=== PATIENT | male | born 1980 | race Caucasian/White ===

== ENCOUNTER 2017-09-29 18:18 | Emergency (ER) | payer BC ==
[2017-09-29] MEDS: ONDANSETRON 4 MG INJ IV (19:24)
[2017-09-29] MEDS: SOD CHLORIDE 0.9% 1,000 ML IV (19:24)
[2017-09-29] MEDS: morphine 4 MG/ML VIAL IV (19:24)
== END 2017-09-29 21:54 | disposition home or self-care (01) ==
LOC: FTE 18:18
DX: T62.91XA Toxic effect of unspecified noxious substance eaten as food, accidental (unintentional), initial encounter (principal); I10 Essential (primary) hypertension
CPT/HCPCS: 96374; 96375; 99284-25

== ENCOUNTER 2017-11-02 03:31 | Emergency (ER) | payer BC | END 2017-11-02 05:05 | disposition home or self-care (01) | LOC: FTE 03:31 | DX: H10.022 Other mucopurulent conjunctivitis, left eye (principal); J20.9 Acute bronchitis, unspecified; I10 Essential (primary) hypertension | CPT/HCPCS: 99284 ==

== ENCOUNTER 2018-02-09 19:57 | Emergency (ER) | payer BC ==
[2018-02-09 21:18] LABS: ADD MAN DIFF? NO
[2018-02-09 21:23] LABS: BASOPHILS % 0.3 % (0.0-2.0); EOSINOPHILS # 0.2 10^3/ul (0.0-0.5); EOSINOPHILS % 3.2 % (0.0-7.0); HEMATOCRIT 43.8 % (42.0-52.0); HEMOGLOBIN 15.1 g/dl (14.0-18.0); LYMPHOCYTES # 1.7 10^3/ul (0.8-2.9); LYMPHOCYTES % 26.5 % (15.0-51.0); MEAN CORPUSCULAR HEMOGLOBIN 28.7 pg (29.0-33.0); MEAN CORPUSCULAR HGB CONC 34.5 g/dl (32.0-37.0); MEAN CORPUSCULAR VOLUME 83.1 fl (82.0-101.0); MEAN PLATELET VOLUME 9.6 fl (7.4-10.4); MONOCYTE # 0.4 10^3/ul (0.3-0.9); MONOCYTES % 6.4 % (0.0-11.0); NEUTROPHIL # 4.1 10^3/ul (1.6-7.5); NEUTROPHILS % 63.4 % (39.0-77.0); PLATELET COUNT 316 10^3/UL (140-415); RED BLOOD COUNT 5.27 10^6/ul (4.70-6.10); RED CELL DISTRIBUTION WIDTH 13.2 % (11.5-14.5)
[2018-02-09 21:23] LABS: WHITE BLOOD COUNT 6.5 10^3/ul (4.8-10.8)
[2018-02-09 21:26] LABS: ADD UMIC NO; UR ASCORBIC ACID 40 mg/dL (NEGATIVE); UR BILIRUBIN (Dip) NEGATIVE (NEGATIVE); UR BLOOD (Dip) NEGATIVE (NEGATIVE); UR CLARITY CLEAR (CLEAR); UR COLOR YELLOW (YELLOW); UR GLUCOSE (Dip) NEGATIVE (NEGATIVE); UR KETONES (Dip) NEGATIVE (NEGATIVE); UR LEUKOCYTE ESTERASE (Dip) NEGATIVE Leu/ul (NEGATIVE); UR NITRITE (Dip) NEGATIVE (NEGATIVE); UR SPECIFIC GRAVITY (Dip) 1.023 (1.003-1.030); UR TOTAL PROTEIN (Dip) NEGATIVE (NEGATIVE); UR UROBILINOGEN (Dip) NEGATIVE (NEGATIVE)
[2018-02-09 21:44] LABS: ALANINE AMINOTRANSFERASE 111 IU/L (13-69); ALBUMIN 4.4 g/dl (3.3-4.9); ALBUMIN/GLOBULIN RATIO 1.33; ALKALINE PHOSPHATASE 74 IU/L (42-121); ANION GAP 13 (8-16); ASPARTATE AMINO TRANSFERASE 47 IU/L (15-46); BILIRUBIN,INDIRECT 0.5 mg/dl (0-1.1); BILIRUBIN,TOTAL 0.5 mg/dl (0.2-1.3); BLOOD UREA NITROGEN 16 mg/dl (7-20); CALCIUM 9.1 mg/dl (8.4-10.2); CARBON DIOXIDE 28 mmol/L (21-31); CHLORIDE 103 mmol/L (97-110); CREATININE 0.89 mg/dl (0.61-1.24); GLUCOSE 90 mg/dl (70-220); POTASSIUM 4.1 mmol/L (3.5-5.1); SODIUM 140 mmol/L (135-144); TOTAL PROTEIN 7.7 g/dl (6.1-8.1)
== END 2018-02-09 22:38 | disposition home or self-care (01) ==
LOC: FTE 19:57
DX: R53.1 Weakness (principal); I10 Essential (primary) hypertension
CPT/HCPCS: 36415; 80053; 81003; 85025; 99283

== ENCOUNTER 2018-08-29 02:24 | Emergency (ER) | payer BC | END 2018-08-29 05:41 | disposition home or self-care (01) | LOC: FTE 02:24 | DX: S06.0X1A Concussion with loss of consciousness of 30 minutes or less, initial encounter (principal); R42 Dizziness and giddiness; I10 Essential (primary) hypertension; W22.8XXA Striking against or struck by other objects, initial encounter; Y92.9 Unspecified place or not applicable | CPT/HCPCS: 70450; 99284 ==

== ENCOUNTER 2018-11-03 07:34 | Emergency (ER) | payer BC ==
[2018-11-03] MEDS: predniSONE 20 MG TAB PO (08:00)
[2018-11-03] MEDS: ALBUTEROL 0.083% (NEB) 2.5 MG/3 ML AMP NEB (08:19)
[2018-11-03] MEDS: IPRATROPIUM (NEB) 0.5 MG/2.5 ML AMP NEB (08:20)
== END 2018-11-03 09:03 | disposition home or self-care (01) ==
LOC: FTE 07:34
DX: J20.9 Acute bronchitis, unspecified (principal); I10 Essential (primary) hypertension; J45.901 Unspecified asthma with (acute) exacerbation
CPT/HCPCS: 71045; 94664; 99284-25

== ENCOUNTER 2018-11-07 14:57 | Emergency (ER) | payer BC | END 2018-11-07 15:16 | disposition home or self-care (01) | LOC: FTE 14:57 → E/R 15:16 | DX: L03.312 Cellulitis of back [any part except buttock and flank] (principal); I10 Essential (primary) hypertension | CPT/HCPCS: 99283 ==

== ENCOUNTER 2018-11-12 06:14 | Emergency (ER) | payer BC ==
[2018-11-12] MEDS: SOD CHLORIDE 0.9% 1,000 ML IV (06:57)
[2018-11-12] MEDS: ONDANSETRON 4 MG INJ IV (06:58)
[2018-11-12] MEDS: KETOROLAC 30 MG INJ IV (06:58)
[2018-11-12] MEDS: FAMOTIDINE 20 MG INJ IV (07:18)
== END 2018-11-12 08:30 | disposition home or self-care (01) ==
LOC: FTE 06:14
DX: R19.7 Diarrhea, unspecified (principal); Z48.01 Encounter for change or removal of surgical wound dressing
CPT/HCPCS: 96374; 96375; 99284-25; J1885